=== PATIENT | female | born 1985 | race Two or more races ===

== ENCOUNTER 2017-10-26 10:18 | Inpatient (IN) | payer OTHER ==
[2017-10-26 13:29] VITALS: BMI 17.4
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
[2017-10-26] MEDS ORDERED: MAGNESIUM CITRATE 300 ML BOTTLE PO PRN (14:00)
[2017-10-26] MEDS ORDERED: chlordiazePOXIDE HCL 25 MG CAPSULE PO PRN (14:00)
[2017-10-26] MEDS ORDERED: MAGNESIUM HYDROX 2400MG/30ML ORAL SUSPENSION 30 ML CUP PO PRN (14:00)
[2017-10-26] MEDS ORDERED: MENTHOL/PHENOL 1 EACH UD MM PRN (14:00)
[2017-10-26] MEDS ORDERED: P-EPHED 60MG/TRIPROLIDI 2.5MG TABLET PO PRN (14:00)
[2017-10-26] MEDS ORDERED: MAG HYDROX/AL HYDROX/SIMETH 30 ML UNIT-DOSE CUP PO PRN (14:00)
[2017-10-26] MEDS ORDERED: NICOTINE POLACRILEX 2 MG GUM BUC PRN (14:00)
[2017-10-26] MEDS ORDERED: hydrOXYzine PAMOATE 50 MG CAPSULE (FP) PO PRN (14:00)
[2017-10-26] MEDS ORDERED: LOPERAMIDE HCL 2 MG CAPSULE PO PRN (14:00)
[2017-10-26] MEDS ORDERED: guaiFENesin/D-METHORPHAN HB 10 ML UNIT-DOSE CUPS PO PRN (14:00)
[2017-10-26] MEDS ORDERED: chlordiazePOXIDE HCL 25 MG CAPSULE PO ONE (14:36)
[2017-10-26] MEDS: NICOTINE 21 MG/24 HOURS TOPICAL PATCH TD SCH (14:59)
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
[2017-10-26] MEDS: chlordiazePOXIDE HCL 25 MG CAPSULE PO SCH ×2 (18:12→22:41)
[2017-10-26] MEDS: metroNIDAZOLE 250 MG TABLET PO SCH (22:41)
[2017-10-26] MEDS: THIAMINE HCL 100 MG TABLET (FP) PO SCH (22:41)
[2017-10-26 22:56] LABS: URINE APPEARANCE CLOUDY; URINE BILIRUBIN NEGATIVE (NEGATIVE); URINE BLOOD NEGATIVE (NEGATIVE); URINE COLOR YELLOW; URINE GLUCOSE (UA) NEGATIVE (NEGATIVE); URINE KETONE NEGATIVE (NEGATIVE); URINE NITRITE NEGATIVE (NEGATIVE); URINE PROTEIN NEGATIVE (NEGATIVE); URINE UROBILINOGEN NEGATIVE mg/dL (0.2-1.0)
[2017-10-26 23:05] LABS: URINE LEUK ESTERASE 3+ (NEGATIVE)
[2017-10-26 23:14] LABS: EPI CELLS MANY /HPF (FEW); URINE MUCUS RARE
[2017-10-27] MEDS: metroNIDAZOLE 250 MG TABLET PO SCH ×3 (06:09→22:55)
[2017-10-27] MEDS: chlordiazePOXIDE HCL 25 MG CAPSULE PO SCH ×4 (06:09→23:41)
--- NOTE | 2017-10-27 08:53 | PN ---
S CIWA - CIWA Score Nausea/Vomitin-Mild Nausea/No Vomiting Muscle Tremors: 4-Moderate,w/Arms Extend Anxiety: 4-Mod. Anxious/Guarded Agitation: 4-Moderately Restless Paroxysmal Sweats: 1-Minimal Palms Moist Orientation: 0-Oriented Tacttile Disturbances: 2-Mild Itch/Numbness/Burn Auditory Disturbances: 0-None Visual Disturbances: 0-None Headache: 2-Mild CIWA-Ar Total Score: 18 BHS Progress Note (SOAP) Subjective: tremor sweat anxiety headache gi upset Objective: 10/27/17 08:50 Vital Signs Temperature 97.0 F L 10/27/17 06:35 Pulse Rate 76 10/27/17 06:35 Respiratory Rate 18 10/27/17 06:35 Blood Pressure 110/51 10/27/17 06:35 O2 Sat by Pulse Oximetry (%) Laboratory Last Values Urine Color Yellow 10/26/17 19:45 Urine Appearance Cloudy 10/26/17 19:45 Urine pH 6.0 (5.0-8.0) 10/26/17 19:45 Ur Specific [place] 1.021 (1.001-1.035) 10/26/17 19:45 Urine Protein Negative (NEGATIVE) 10/26/17 19:45 Urine Glucose (UA) Negative (NEGATIVE) 10/26/17 19:45 Urine Ketones Negative (NEGATIVE) 10/26/17 19:45 Urine Blood Negative (NEGATIVE) 10/26/17 19:45 Urine Nitrite Negative (NEGATIVE) 10/26/17 19:45 Urine Bilirubin Negative (NEGATIVE) 10/26/17 19:45 Urine Urobilinogen Negative mg/dL (0.2-1.0) 10/26/17 19:45 Ur Leukocyte Esterase 3+ (NEGATIVE) H 10/26/17 19:45 Urine WBC (Auto) 108 /hpf (3-5) 10/26/17 19:45 Urine RBC (Auto) 14 /hpf (0-3) 10/26/17 19:45 Ur Epithelial Cells Many /HPF (FEW) 10/26/17 19:45 Urine Mucus Rare 10/26/17 19:45 lab noted repeat ua Assessment: 10/27/17 08:52 withdrawal sx asymptomatic gu Plan: continue detox repeat ua
[2017-10-27] MEDS: PRENATAL VITAMINS W/ FOLIC ACID TABLET (FP) PO SCH (10:24)
[2017-10-27] MEDS: NICOTINE 21 MG/24 HOURS TOPICAL PATCH TD SCH (10:25)
[2017-10-27 10:27] LABS: CHLORIDE 101 mmol/L (98-107); POTASSIUM 3.8 mmol/L (3.5-5.1); SODIUM 140 mmol/L (136-145)
[2017-10-27 10:34] LABS: ALBUMIN 3.3 g/dl (3.4-5.0); ALK PHOS 55 U/L (45-117); ANION GAP 10 (8-16); BILIRUBIN,TOTAL 0.4 mg/dL (0.2-1.0); BLOOD UREA NITROGEN 9 mg/dL (7-18); CALCIUM 8.8 mg/dL (8.5-10.1); CO2 29 mmol/L (21-32); CREATININE 0.6 mg/dL (0.55-1.02); GLUCOSE,RANDOM 65 mg/dL (74-106); SGOT/AST 25 U/L (15-37); SGPT/ALT 24 U/L (12-78); TOT PROT 6.9 g/dl (6.4-8.2)
[2017-10-27 10:40] LABS: HEMATOCRIT 37.2 % (32.4-45.2); HEMOGLOBIN 12.4 GM/dL (10.7-15.3); MCH 32.5 pg (25.7-33.7); MCHC 33.4 g/dl (32.0-36.0); MEAN CELL VOLUME 97.4 fl (80-96); MEAN PLT VOLUME 10.3 fl (7.5-11.1); PLATELET COUNT 210 K/MM3 (134-434); RBC 3.82 M/mm3 (3.60-5.2); RDW 15.5 % (11.6-15.6); WHITE BLOOD COUNT 6.4 K/mm3 (4.0-10.0)
--- NOTE | 2017-10-27 12:27 | EKG ---
Test Reason : Blood Pressure : / mmHG Vent. Rate : 065 BPM Atrial Rate : 065 BPM P-R Int : 132 ms QRS Dur : 084 ms QT Int : 428 ms P-R-T Axes : -04 046 049 degrees QTc Int : 445 ms POOR DATA QUALITY, INTERPRETATION MAY BE ADVERSELY AFFECTED NORMAL SINUS RHYTHM NORMAL ECG NO PREVIOUS ECGS AVAILABLE Confirmed by MIO BAY MD ([id number]) on 10/27/2017 12:26:41 PM Referred By: Confirmed By:MIO BAY MD
--- NOTE | 2017-10-27 17:44 | PN ---
BHS Progress Note Note: Patient severe vomiting. One time order tigan IM Increase fluids as tolerated Continue to monitor
[2017-10-27] MEDS ORDERED: TRIMETHOBENZAMIDE HCL 200MG/2ML INJ IM ONE (18:15)
[2017-10-27] MEDS: THIAMINE HCL 100 MG TABLET (FP) PO SCH (23:41)
[2017-10-28] MEDS: metroNIDAZOLE 250 MG TABLET PO SCH ×3 (05:59→22:45)
[2017-10-28] MEDS: chlordiazePOXIDE HCL 25 MG CAPSULE PO SCH ×2 (05:59→10:29)
--- NOTE | 2017-10-28 10:28 | PN ---
[facility] CIWA - CIWA Score Nausea/Vomitin Muscle Tremors: 2 Anxiety: 3 Agitation: 2 Paroxysmal Sweats: 3 Orientation: 0-Oriented Tacttile Disturbances: 1-Very Mild Itch/Numbness Auditory Disturbances: 0-None Visual Disturbances: 0-None Headache: 0-None Present CIWA-Ar Total Score: 14 [facility] Progress Note (SOAP) Subjective: interrupted, sleep, nightmares, sweats, anorexia Objective: 10/28/17 10:28 Vital Signs Temperature 98.2 F 10/28/17 09:51 Pulse Rate 97 H 10/28/17 09:51 Respiratory Rate 16 10/28/17 09:51 Blood Pressure 108/72 10/28/17 09:51 O2 Sat by Pulse Oximetry (%) Laboratory Tests 10/26/17 10/26/17 10/27/17 07:30 19:45 07:30 WBC 6.4 RBC 3.82 Hgb 12.4 Hct 37.2 MCV 97.4 H MCH 32.5 MCHC 33.4 RDW 15.5 Plt Count 210 MPV 10.3 Sodium Potassium Chloride Carbon Dioxide Anion Gap BUN Creatinine Creat Clearance w eGFR Random Glucose Calcium Total Bilirubin AST ALT Alkaline Phosphatase Total Protein Albumin Urine Color Yellow Urine Appearance Cloudy Urine pH 6.0 Ur Specific [place] 1.021 Urine Protein Negative Urine Glucose (UA) Negative Urine Ketones Negative Urine Blood Negative Urine Nitrite Negative Urine Bilirubin Negative Urine Urobilinogen Negative Ur Leukocyte Esterase 3+ H Urine WBC (Auto) 108 Urine RBC (Auto) 14 Ur Epithelial Cells Many Urine Mucus Rare RPR Titer HIV 1&2 Antibody Screen Negative HIV P24 Antigen Negative 10/27/17 10/27/17 07:30 07:30 WBC RBC Hgb Hct MCV MCH MCHC RDW Plt Count MPV Sodium 140 Potassium 3.8 Chloride 101 Carbon Dioxide 29 Anion Gap 10 BUN 9 Creatinine 0.6 Creat Clearance w eGFR > 60 Random Glucose 65 L Calcium 8.8 Total Bilirubin 0.4 AST 25 ALT 24 Alkaline Phosphatase 55 Total Protein 6.9 Albumin 3.3 L Urine Color Urine Appearance Urine pH Ur Specific [place] Urine Protein Urine Glucose (UA) Urine Ketones Urine Blood Urine Nitrite Urine Bilirubin Urine Urobilinogen Ur Leukocyte Esterase Urine WBC (Auto) Urine RBC (Auto) Ur Epithelial Cells Urine Mucus RPR Titer Nonreactive HIV 1&2 Antibody Screen HIV P24 Antigen pt aox3 in nad ambualting Assessment: 10/28/17 10:29 withdrawal sx's 10/28/17 10:29 nightmares 2nd to nicotine patch Plan: cont. detox increase fluids d/c nicotine patch before bedtime. periactin 4mg bid
[2017-10-28] MEDS: NICOTINE 21 MG/24 HOURS TOPICAL PATCH TD SCH (10:29)
[2017-10-28] MEDS: PRENATAL VITAMINS W/ FOLIC ACID TABLET (FP) PO SCH (10:29)
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
[2017-10-28 14:56] LABS: URINE APPEARANCE CLEAR; URINE BILIRUBIN NEGATIVE (NEGATIVE); URINE BLOOD NEGATIVE (NEGATIVE); URINE COLOR LTYELLOW; URINE GLUCOSE (UA) NEGATIVE (NEGATIVE); URINE KETONE NEGATIVE (NEGATIVE); URINE LEUK ESTERASE NEGATIVE (NEGATIVE); URINE NITRITE NEGATIVE (NEGATIVE); URINE PROTEIN NEGATIVE (NEGATIVE); URINE UROBILINOGEN NEGATIVE mg/dL (0.2-1.0)
[2017-10-28] MEDS: CYPROHEPTADINE HCL 4 MG TABLET PO SCH (17:00)
[2017-10-28] MEDS: chlordiazePOXIDE 5 MG CAPSULE PO SCH ×2 (17:00→23:47)
[2017-10-28] MEDS: THIAMINE HCL 100 MG TABLET (FP) PO SCH (22:45)
[2017-10-28] MEDS: QUEtiapine FUMARATE 25 MG TABLET (FP) PO SCH (22:45)
[2017-10-29] MEDS: chlordiazePOXIDE 5 MG CAPSULE PO SCH ×2 (06:00→10:34)
[2017-10-29] MEDS: CYPROHEPTADINE HCL 4 MG TABLET PO SCH ×3 (06:21→21:16)
[2017-10-29] MEDS: metroNIDAZOLE 250 MG TABLET PO SCH ×3 (06:21→14:00)
[2017-10-29] MEDS: NICOTINE 21 MG/24 HOURS TOPICAL PATCH TD SCH (10:30)
[2017-10-29] MEDS: QUEtiapine FUMARATE 25 MG TABLET (FP) PO SCH (10:30)
[2017-10-29] MEDS: PRENATAL VITAMINS W/ FOLIC ACID TABLET (FP) PO SCH (10:33)
--- NOTE | 2017-10-29 13:02 | PN ---
BHS Progress Note (SOAP) Subjective: Shakes sweats Sleep disturbance Objective: 10/29/17 13:00 A & Ox 3 Anxious Ambulating steadily on unit No acute distress noted Vital Signs Temperature 97.7 F 10/29/17 10:00 Pulse Rate 94 H 10/29/17 10:00 Respiratory Rate 16 10/29/17 10:00 Blood Pressure 116/70 10/29/17 10:00 O2 Sat by Pulse Oximetry (%) Assessment: 10/29/17 13:01 withdrawal sx Plan: continue detox
[2017-10-29] MEDS: ACETAMINOPHEN 325 MG TABLET (FP) PO PRN ×2 (14:30→23:43)
[2017-10-29] MEDS: chlordiazePOXIDE HCL 10 MG CAPSULE PO SCH ×2 (21:17→23:45)
[2017-10-29] MEDS: IBUPROFEN 400 MG TABLET (FP) PO PRN (21:45)
[2017-10-29] MEDS: THIAMINE HCL 100 MG TABLET (FP) PO SCH (23:45)
[2017-10-29] MEDS ORDERED: AZITHROMYCIN 250 MG TABLET PO ONE (23:47)
--- NOTE | 2017-10-29 23:47 | PN ---
[facility] Progress [facility] Note: CLIENT SEEN AT BEDSIDE FOR TEMP OF 102 NOT RELIEVED WITH TYLENOL/MOTRIN AND ON GOING TACHYCARDIA 130'S CLIENT REPORTS PRODUCTIVE COUGH WITH GREENISH LIKE SPUTUM, SOB AT TIMES X 1 DAY. DENIES SORE THROAT,C.P., DIARRHEA Vital Signs 10/29/17 10/30/17 10/30/17 23:07 00:30 03:30 Temperature 102.0 F H Pulse Rate 124 H Respiratory 18 18 16 Rate Blood Pressure 136/69 10/30/17 06:00 Temperature 97.5 F L Pulse Rate 84 Respiratory 16 Rate Blood Pressure 107/65 ECG NSR; HR 108 CLIENT LYING IN BED A/O X3 AGITATED, MILD DISTRESS; NON PRODUCTIVE COUGH SKIN WARM HOT TO TOUCH NECK/ THROAT- NO LAD, THROAT PINK, MOIST CV RR TACHY LUNGS CTAB A- FEVER, COUGH P- Z PACK TYLENOL/ MOTRIN PO HYDRATION CONT TO MONITOR FOR WORSENING SX'S
[2017-10-30] MEDS: QUEtiapine FUMARATE 25 MG TABLET (FP) PO SCH ×3 (00:29→22:11)
[2017-10-30] MEDS: chlordiazePOXIDE HCL 10 MG CAPSULE PO SCH ×2 (06:57→11:26)
[2017-10-30] MEDS: CYPROHEPTADINE HCL 4 MG TABLET PO SCH ×2 (06:57→17:48)
[2017-10-30] MEDS: metroNIDAZOLE 250 MG TABLET PO SCH ×3 (06:57→22:12)
--- NOTE | 2017-10-30 08:24 | PN ---
[facility] Progress Note (SOAP) Subjective: patient reported that she had elevated temperature, bagan azithromycin regimen, patient tolerated well, current temperature 97.5, stated cough lesssym denies pain,ambulating steady gait, alert oriented x 3 no acute distress, denies symptoms of alcohol withdrawal at this time.tolerate regular food and fluid well Objective: 10/30/17 08:35 Vital Signs Temperature 97.5 F L 10/30/17 06:00 Pulse Rate 84 10/30/17 06:00 Respiratory Rate 16 10/30/17 06:00 Blood Pressure 107/65 10/30/17 06:00 O2 Sat by Pulse Oximetry (%) Laboratory Last Values WBC 6.4 K/mm3 (4.0-10.0) 10/27/17 07:30 RBC 3.82 M/mm3 (3.60-5.2) 10/27/17 07:30 Hgb 12.4 GM/dL (10.7-15.3) 10/27/17 07:30 Hct 37.2 % (32.4-45.2) 10/27/17 07:30 MCV 97.4 fl (80-96) H 10/27/17 07:30 MCH 32.5 pg (25.7-33.7) 10/27/17 07:30 MCHC 33.4 g/dl (32.0-36.0) 10/27/17 07:30 RDW 15.5 % (11.6-15.6) 10/27/17 07:30 Plt Count 210 K/MM3 (134-434) 10/27/17 07:30 MPV 10.3 fl (7.5-11.1) 10/27/17 07:30 Sodium 140 mmol/L (136-145) 10/27/17 07:30 Potassium 3.8 mmol/L (3.5-5.1) 10/27/17 07:30 Chloride 101 mmol/L (98-107) 10/27/17 07:30 Carbon Dioxide 29 mmol/L (21-32) 10/27/17 07:30 Anion Gap 10 (8-16) 10/27/17 07:30 BUN 9 mg/dL (7-18) 10/27/17 07:30 Creatinine 0.6 mg/dL (0.55-1.02) 10/27/17 07:30 Creat Clearance w eGFR > 60 (>60) 10/27/17 07:30 Random Glucose 65 mg/dL (74-106) L 10/27/17 07:30 Calcium 8.8 mg/dL (8.5-10.1) 10/27/17 07:30 Total Bilirubin 0.4 mg/dL (0.2-1.0) 10/27/17 07:30 AST 25 U/L (15-37) 10/27/17 07:30 ALT 24 U/L (12-78) 10/27/17 07:30 Alkaline Phosphatase 55 U/L (45-117) 10/27/17 07:30 Total Protein 6.9 g/dl (6.4-8.2) 10/27/17 07:30 Albumin 3.3 g/dl (3.4-5.0) L 10/27/17 07:30 Urine Color L[place] 10/28/17 11:20 Urine Appearance Clear 10/28/17 11:20 Urine pH 8.0 (5.0-8.0) D 10/28/17 11:20 Ur Specific [place] 1.006 (1.001-1.035) 10/28/17 11:20 Urine Protein Negative (NEGATIVE) 10/28/17 11:20 Urine Glucose (UA) Negative (NEGATIVE) 10/28/17 11:20 Urine Ketones Negative (NEGATIVE) 10/28/17 11:20 Urine Blood Negative (NEGATIVE) 10/28/17 11:20 Urine Nitrite Negative (NEGATIVE) 10/28/17 11:20 Urine Bilirubin Negative (NEGATIVE) 10/28/17 11:20 Urine Urobilinogen Negative mg/dL (0.2-1.0) 10/28/17 11:20 Ur Leukocyte Esterase Negative (NEGATIVE) 10/28/17 11:20 Urine WBC (Auto) 108 /hpf (3-5) 10/26/17 19:45 Urine RBC (Auto) 14 /hpf (0-3) 10/26/17 19:45 Ur Epithelial Cells Many /HPF (FEW) 10/26/17 19:45 Urine Mucus Rare 10/26/17 19:45 RPR Titer Nonreactive (NONREACTIVE) 10/27/17 07:30 HIV 1&2 Antibody Screen Negative 10/26/17 07:30 HIV P24 Antigen Negative 10/26/17 07:30 lab noted 10/30/17 08:35 cardiac S1S2 RRR lung: clear bilatterally abdomen: soft non tender extremities: full range of motion denies sensary deficit +2 pulses skin warm dry brisk capillary refilled 10/30/17 08:36 Assessment: 10/30/17 08:37 32 years old female admitted 10/26/17 for alcohol detox, completed detox regimen, no signs and symptoms of alcohol withdrawal noted at this time, Plan: discharged to home follow up with primary care provider, utilize emergency services if needed,
--- NOTE | 2017-10-30 08:46 | DS ---
[facility] Detox Discharge Summary Admission Date: 10/26/17 Discharge Date: 10/30/17 - History Present History: Alcohol Dependence - Physical Exam Results Vital Signs: Vital Signs Temperature 97.5 F L 10/30/17 06:00 Pulse Rate 84 10/30/17 06:00 Respiratory Rate 16 10/30/17 06:00 Blood Pressure 107/65 10/30/17 06:00 O2 Sat by Pulse Oximetry (%) Pertinent Admission Physical Exam Findings: WITHDRAWAL SX Laboratory Last Values WBC 6.4 K/mm3 (4.0-10.0) 10/27/17 07:30 RBC 3.82 M/mm3 (3.60-5.2) 10/27/17 07:30 Hgb 12.4 GM/dL (10.7-15.3) 10/27/17 07:30 Hct 37.2 % (32.4-45.2) 10/27/17 07:30 MCV 97.4 fl (80-96) H 10/27/17 07:30 MCH 32.5 pg (25.7-33.7) 10/27/17 07:30 MCHC 33.4 g/dl (32.0-36.0) 10/27/17 07:30 RDW 15.5 % (11.6-15.6) 10/27/17 07:30 Plt Count 210 K/MM3 (134-434) 10/27/17 07:30 MPV 10.3 fl (7.5-11.1) 10/27/17 07:30 Sodium 140 mmol/L (136-145) 10/27/17 07:30 Potassium 3.8 mmol/L (3.5-5.1) 10/27/17 07:30 Chloride 101 mmol/L (98-107) 10/27/17 07:30 Carbon Dioxide 29 mmol/L (21-32) 10/27/17 07:30 Anion Gap 10 (8-16) 10/27/17 07:30 BUN 9 mg/dL (7-18) 10/27/17 07:30 Creatinine 0.6 mg/dL (0.55-1.02) 10/27/17 07:30 Creat Clearance w eGFR > 60 (>60) 10/27/17 07:30 Random Glucose 65 mg/dL (74-106) L 10/27/17 07:30 Calcium 8.8 mg/dL (8.5-10.1) 10/27/17 07:30 Total Bilirubin 0.4 mg/dL (0.2-1.0) 10/27/17 07:30 AST 25 U/L (15-37) 10/27/17 07:30 ALT 24 U/L (12-78) 10/27/17 07:30 Alkaline Phosphatase 55 U/L (45-117) 10/27/17 07:30 Total Protein 6.9 g/dl (6.4-8.2) 10/27/17 07:30 Albumin 3.3 g/dl (3.4-5.0) L 10/27/17 07:30 Urine Color Ltyellow 10/28/17 11:20 Urine Appearance Clear 10/28/17 11:20 Urine pH 8.0 (5.0-8.0) D 10/28/17 11:20 Ur Specific [place] 1.006 (1.001-1.035) 10/28/17 11:20 Urine Protein Negative (NEGATIVE) 10/28/17 11:20 Urine Glucose (UA) Negative (NEGATIVE) 10/28/17 11:20 Urine Ketones Negative (NEGATIVE) 10/28/17 11:20 Urine Blood Negative (NEGATIVE) 10/28/17 11:20 Urine Nitrite Negative (NEGATIVE) 10/28/17 11:20 Urine Bilirubin Negative (NEGATIVE) 10/28/17 11:20 Urine Urobilinogen Negative mg/dL (0.2-1.0) 10/28/17 11:20 Ur Leukocyte Esterase Negative (NEGATIVE) 10/28/17 11:20 Urine WBC (Auto) 108 /hpf (3-5) 10/26/17 19:45 Urine RBC (Auto) 14 /hpf (0-3) 10/26/17 19:45 Ur Epithelial Cells Many /HPF (FEW) 10/26/17 19:45 Urine Mucus Rare 10/26/17 19:45 RPR Titer Nonreactive (NONREACTIVE) 10/27/17 07:30 HIV 1&2 Antibody Screen Negative 10/26/17 07:30 HIV P24 Antigen Negative 10/26/17 07:30 LAB NOTED - Treatment Hospital Course: Detox Protocol Followed, Detoxed Safely, Responded well, Discharged Condition Good, Rehab Referral Accepted Patient has Accepted a Rehab Referral to: [facility] - Medication Discharge Medications: Ambulatory Orders Azithromycin [Zithromax 250mg Tablets -] 250 mg PO DAILY #4 tablet 10/30/17 - AMA Did Patient Leave Against Medical Advice: No
[2017-10-30] MEDS: IBUPROFEN 400 MG TABLET (FP) PO PRN ×2 (11:24→17:48)
[2017-10-30] MEDS: NICOTINE 21 MG/24 HOURS TOPICAL PATCH TD SCH (11:27)
[2017-10-30] MEDS: PRENATAL VITAMINS W/ FOLIC ACID TABLET (FP) PO SCH (11:28)
[2017-10-30] MEDS: ACETAMINOPHEN 325 MG TABLET (FP) PO PRN (11:28)
[2017-10-30] MEDS: AZITHROMYCIN 250 MG TABLET PO SCH (11:30)
--- NOTE | 2017-10-30 11:40 | PN ---
S Progress Note Note: 10 am vial signs indicate that the patient continue having fever of 102 stuffy nose, headache, delay discharge date to 10/31/17
--- NOTE | 2017-10-30 20:35 | EKG ---
Test Reason : Blood Pressure : / mmHG Vent. Rate : 108 BPM Atrial Rate : 108 BPM P-R Int : 130 ms QRS Dur : 064 ms QT Int : 332 ms P-R-T Axes : 056 046 045 degrees QTc Int : 444 ms SINUS TACHYCARDIA OTHERWISE NORMAL ECG WHEN COMPARED WITH ECG OF 26-OCT-2017 15:14, VENT. RATE HAS INCREASED BY 43 BPM Confirmed by MALACHI CARTER MD ([id number]) on 10/30/2017 8:35:11 PM Referred By: Confirmed By:MALACHI CARTER MD
[2017-10-30] MEDS: THIAMINE HCL 100 MG TABLET (FP) PO SCH (22:11)
[2017-10-31] MEDS: IBUPROFEN 400 MG TABLET (FP) PO PRN (05:49)
[2017-10-31] MEDS: metroNIDAZOLE 250 MG TABLET PO SCH ×2 (05:50→13:27)
[2017-10-31] MEDS: CYPROHEPTADINE HCL 4 MG TABLET PO SCH (06:14)
--- NOTE | 2017-10-31 08:44 | PN ---
S Progress Note (SOAP) Subjective: ALERT,NO COMPLAINT Objective: 10/31/17 08:42 Vital Signs Temperature 100.2 F H 10/31/17 07:56 Pulse Rate 122 H 10/31/17 06:04 Respiratory Rate 16 10/31/17 06:30 Blood Pressure 102/53 10/31/17 06:04 O2 Sat by Pulse Oximetry (%) Assessment: 10/31/17 08:43 DETOX COMPLETED,NO WITHDRAWAL SYMPTOM Plan: DISCHARGE TODAY,FOLLOW UP WITH AFTER CARE PROGRAM REVELATION ARRANGEMENT
--- NOTE | 2017-10-31 08:49 | DS ---
[facility] Detox Discharge Summary Admission Date: 10/26/17 Discharge Date: 10/31/17 - History Present History: Alcohol Dependence, Cannabis Dependence, Cocaine Dependence Additional Comments: PATIENT HAS TEMP 100.2,COUGHING,HAS BEEN OA AZITHROMYCI,PATIENT IS STABLE TO BE DISCHARGE TO REHAB TODAY,TO CONTINUE FLAGYL 500 MGS PO TID FOR 5 MORE DAYS AND AZITHROMYCIN 250 MGS PO DAILY FOR 5 DAYS Pertinent Past History: CONTUSION OF JAW BIPOLAR DISORDER VAGINOSIS - Physical Exam Results Vital Signs: Vital Signs Temperature 100.2 F H 10/31/17 07:56 Pulse Rate 122 H 10/31/17 06:04 Respiratory Rate 16 10/31/17 06:30 Blood Pressure 102/53 10/31/17 06:04 O2 Sat by Pulse Oximetry (%) Pertinent Admission Physical Exam Findings: WITHDRAWAL SIGNS AND SYMPTOM Vital Signs Temperature 100.2 F H 10/31/17 07:56 Pulse Rate 122 H 10/31/17 06:04 Respiratory Rate 16 10/31/17 06:30 Blood Pressure 102/53 10/31/17 06:04 O2 Sat by Pulse Oximetry (%) - Treatment Hospital Course: Detox Protocol Followed, Detoxed Safely, Responded well, Discharged Condition Good, Rehab Referral Accepted Patient has Accepted a Rehab Referral to: [facility] - Medication Discharge Medications: Ambulatory Orders Azithromycin [Zithromax 250mg Tablets -] 250 mg PO DAILY #4 tablet 10/30/17 - Diagnosis (1) Alcohol dependence with uncomplicated withdrawal Current Visit: Yes Status: Chronic (2) Cocaine dependence Current Visit: Yes Status: Acute Qualifiers: Substance use status: uncomplicated Qualified Code(s): F14.20 - Cocaine dependence, uncomplicated (3) Cannabis dependence Current Visit: Yes Status: Chronic (4) Nicotine dependence Current Visit: Yes Status: Acute Qualifiers: Nicotine product type: cigarettes Substance use status: uncomplicated Qualified Code(s): F17.210 - Nicotine dependence, cigarettes, uncomplicated (5) Contusion of jaw Current Visit: Yes Status: Acute (6) Bipolar disorder Current Visit: Yes Status: Chronic (7) Vaginosis Current Visit: Yes Status: Acute (8) Acute bronchitis Current Visit: Yes Status: Acute - AMA Did Patient Leave Against Medical Advice: No
[2017-10-31] MEDS: NICOTINE 21 MG/24 HOURS TOPICAL PATCH TD SCH (09:48)
[2017-10-31] MEDS: QUEtiapine FUMARATE 25 MG TABLET (FP) PO SCH (09:48)
[2017-10-31] MEDS: PRENATAL VITAMINS W/ FOLIC ACID TABLET (FP) PO SCH (09:48)
[2017-10-31] MEDS: AZITHROMYCIN 250 MG TABLET PO SCH (09:49)
[2017-10-31 10:30] VITALS: BP 112/67; PULSE 111; TEMP 98.1
== END 2017-10-31 13:55 | disposition other institution (70) | DRG 774 ==
LOC: YASAS 10:18 → Y6N 13:47
PROVIDERS: ADMIT Internal Medicine; ATTEND Internal Medicine
PROC: HZ2ZZZZ Detoxification Services for Substance Abuse Treatment (ICD-10-PCS; principal; 2017-10-26)
DX: F10.230 Alcohol dependence with withdrawal, uncomplicated (principal); F14.20 Cocaine dependence, uncomplicated; F12.20 Cannabis dependence, uncomplicated; F17.210 Nicotine dependence, cigarettes, uncomplicated; F31.9 Bipolar disorder, unspecified; F19.24 Other psychoactive substance dependence with psychoactive substance-induced mood disorder; J20.9 Acute bronchitis, unspecified; N76.0 Acute vaginitis; R00.0 Tachycardia, unspecified; G47.00 Insomnia, unspecified
CPT/HCPCS: 36415; 80053; 81003; 81015; 85027; 86593; 87389; 93005; 93010

== ENCOUNTER 2017-10-31 13:43 | Inpatient (IN) | payer OTHER ==
[2017-10-31 14:23] VITALS: BP 102/70; PULSE 132; TEMP 97.9
[2017-10-31] MEDS ORDERED: MENTHOL/PHENOL 1 EACH UD MM PRN (14:43)
[2017-10-31] MEDS ORDERED: LOPERAMIDE HCL 2 MG CAPSULE PO PRN (14:43)
[2017-10-31] MEDS ORDERED: MAGNESIUM CITRATE 300 ML BOTTLE PO PRN (14:43)
[2017-10-31] MEDS ORDERED: NICOTINE 14 MG/24 HOURS TOPICAL PATCH TD PRN (14:43)
[2017-10-31] MEDS ORDERED: ACETAMINOPHEN 325 MG TABLET (FP) PO PRN (14:43)
[2017-10-31] MEDS ORDERED: MAG HYDROX/AL HYDROX/SIMETH 30 ML UNIT-DOSE CUP PO PRN (14:43)
[2017-10-31] MEDS ORDERED: guaiFENesin/D-METHORPHAN HB 10 ML UNIT-DOSE CUPS PO PRN (14:43)
[2017-10-31] MEDS ORDERED: MAGNESIUM HYDROX 2400MG/30ML ORAL SUSPENSION 30 ML CUP PO PRN (14:43)
[2017-10-31] MEDS ORDERED: P-EPHED 60MG/TRIPROLIDI 2.5MG TABLET PO PRN (14:43)
[2017-10-31] MEDS ORDERED: NICOTINE POLACRILEX 2 MG GUM BUC PRN (14:43)
[2017-10-31] MEDS ORDERED: IBUPROFEN 400 MG TABLET (FP) PO PRN (14:43)
--- NOTE | 2017-10-31 14:48 | HP ---
[facility] Rehab Assess/Revision - Admission History Admitted to Rehab from: [facility] Date of Admission to Rehab: 10/31/17 - Vital signs Vital Signs: Vital Signs Period Temp Pulse Resp BP Sys/Moses Pulse Ox Last 24 Hr 97.9 F 132 18 102/70 - Findings Detox History & Physical reviewed: Yes Concur with findings: Yes Comments/Additional Findings: transferred from detox to rehab admission as per protocol Inpatient Rehab Admission - Initial Determination Are CD services needed?: Yes Free of communicable disease: Yes Not in need of hospitalization: Yes - Rehab Admission Criteria Previous failed treatment: Yes Poor recovery environment: Yes Comorbidities: Yes Lacks judgement: No Patient is meeting Inpatient Rehab admission criteria:: Yes
--- NOTE | 2017-10-31 16:24 | HP ---
Psychiatrist Admission - Data Date of interview: 10/31/17 Admission source: [address] [place] [address] Identifying data: This is the first admission to [address] [place] [address] rehabilitation for this 32 years old [place] single mother of 2 (12 and 9 yo under care of their father).Patient resides with mother,unemployed,no financial support. Vital Signs: Vital Signs - 24 hr 10/31/17 10/31/17 14:23 14:55 Temperature 97.9 F 97.9 F Pulse Rate 132 H Respiratory 18 18 Rate Blood Pressure 102/70 102/70 Allergies/Adverse Reactions: Allergies Allergy/AdvReac Type Severity Reaction Status Date / Time No Known Allergies Allergy Verified 10/31/17 14:04 Concur with the findings of this exam: Yes - Substance Abuse/Tx History Hx Alcohol Use: Yes (reports drinkin since 14 yo) Hx Substance Use: Yes (cocaine/crack since 18 yo,marijuana since 14 yo) Substance Use Type: Alcohol, Cocaine, Marijuana Hx Substance Use Treatment: Yes (this is her first inpatient rehabilitation ) Mental Status Exam - Mental Status Exam Alert and Oriented to: Time, Place, Person Cognitive Function: Grossly Intact Patient Appearance: Unkempt Mood: Sad, Irritable Affect: Mood Congruent, Labile Patient Behavior: Cooperative Speech Pattern: Clear Voice Loudness: Normal Thought Process: Goal Oriented Thought Disorder: Not Present Hallucinations: Denies Suicidal Ideation: Denies Homicidal Ideation: Denies Insight/Judgement: Fair Sleep: Fair Appetite: Good Muscle strength/Tone: Normal Gait/Station: Normal Psychiatric Findings - Problem List ([place] 1, 2,3) (1) Acute bronchitis Current Visit: Yes Status: Resolved (2) Cocaine dependence Current Visit: Yes Status: Chronic Qualifiers: Substance use status: uncomplicated Qualified Code(s): F14.20 - Cocaine dependence, uncomplicated (3) Nicotine dependence Current Visit: Yes Status: Chronic Qualifiers: Nicotine product type: cigarettes Substance use status: uncomplicated Qualified Code(s): F17.210 - Nicotine dependence, cigarettes, uncomplicated (4) Substance induced mood disorder Current Visit: Yes Status: Chronic (5) Alcohol dependence Current Visit: Yes Status: Chronic (6) Cannabis dependence Current Visit: Yes Status: Chronic - Initial Treatment Plan Initial Treatment Plan: Seroquel 25 mg po bid.
[2017-10-31] MEDS ORDERED: hydrOXYzine PAMOATE 50 MG CAPSULE (FP) PO PRN (17:06)
[2017-10-31] MEDS ORDERED: THIAMINE HCL 100 MG TABLET (FP) PO SCH (22:00)
[2017-10-31] MEDS ORDERED: QUEtiapine FUMARATE 25 MG TABLET (FP) PO SCH (22:00)
[2017-10-31] MEDS ORDERED: metroNIDAZOLE 250 MG TABLET PO SCH ×2 (22:00)
[2017-11-01] MEDS ORDERED: AZITHROMYCIN 250 MG TABLET PO SCH (10:00)
[2017-11-01] MEDS ORDERED: PRENATAL VITAMINS W/ FOLIC ACID TABLET (FP) PO SCH (10:00)
== END 2017-10-31 23:12 | disposition left against medical advice (07) | DRG 770 ==
LOC: YASAS 13:43 → Y3E 13:44
PROVIDERS: ADMIT Psychiatry & Neurology Psychiatry; ATTEND Psychiatry & Neurology Psychiatry
PROC: HZ42ZZZ Group Counseling for Substance Abuse Treatment, Cognitive-Behavioral (ICD-10-PCS; principal; 2017-10-31)
DX: F10.20 Alcohol dependence, uncomplicated (principal); F14.20 Cocaine dependence, uncomplicated; F12.20 Cannabis dependence, uncomplicated; F17.210 Nicotine dependence, cigarettes, uncomplicated; F19.24 Other psychoactive substance dependence with psychoactive substance-induced mood disorder; J20.9 Acute bronchitis, unspecified